=== PATIENT | female | born 1955 | race Caucasian/White ===

== ENCOUNTER 2022-05-24 08:29 | Observation (INO) ==
--- NOTE | 2022-05-10 12:00 | PAT Medication Instructions ---
Medication Instructions Date of Service May 10, 2022 Home Medications aspirin 81 mg tablet,delayed release 81 mg PO QPM atenolol 25 mg tablet 12.5 mg PO QPM 1 glucosamine-chondroitin 250 mg-200 mg tablet (Osteo Bi-Flex) 1 tab PO BID omega 3 350 mg-dha 235 mg-epa 90 mg-fish oil 597 mg capsule,delay rel ([place]-3) 1 tab PO WK Biotin 12,000 mg PO BID Calcium 1,500 mg PO BID Iron 28 mg PO QAM ascorbic acid (vitamin C) 1,000 mg tablet (Vitamin C) 1 g PO BID cholecalciferol (vitamin D3) 125 mcg (5,000 unit) tablet (Vitamin D3) 125 mcg PO QAM red yeast rice 600 mg tablet 600 mg PO BID vitamin K2 100 mcg capsule 100 mcg PO QAM zinc 50 mg tablet 50 mg PO QAM ASK your prescriber and surgeon aspirin 81 mg tablet,delayed release 81 mg PO QPM STOP taking 2 weeks before surgery glucosamine-chondroitin 250 mg-200 mg tablet (Osteo Bi-Flex) 1 tab PO BID omega 3 350 mg-dha 235 mg-epa 90 mg-fish oil 597 mg capsule,delay rel ([place]-3) 1 tab PO WK Biotin 12,000 mg PO BID red yeast rice 600 mg tablet 600 mg PO BID vitamin K2 100 mcg capsule 100 mcg PO QAM DO NOT take the morning of surgery Calcium 1,500 mg PO BID Iron 28 mg PO QAM ascorbic acid (vitamin C) 1,000 mg tablet (Vitamin C) 1 g PO BID cholecalciferol (vitamin D3) 125 mcg (5,000 unit) tablet (Vitamin D3) 125 mcg PO QAM zinc 50 mg tablet 50 mg PO QAM Take evening before surgery atenolol 25 mg tablet 12.5 mg PO QPM Calcium 1,500 mg PO BID ascorbic acid (vitamin C) 1,000 mg tablet (Vitamin C) 1 g PO BID OTHERWISE NOTHING TO EAT OR DRINK AFTER MIDNIGHT Other Notes If you have any questions please call us at [phone] or [phone] or [phone] or [phone]
--- NOTE | 2022-05-14 15:15 | History and Physical Report ---
CHIEF COMPLAINT: Mass protruding from the vagina on coughing, sneezing, or straining. HISTORY OF PRESENT ILLNESS: The patient is a 67-year-old 3, para 3, good general health. Myla valentine had a total abdominal hysterectomy and bilateral salpingo-oophorectomy with removal of ovarian tumo r in 2014. She had a lot of uterine prolapse at this time, and at this time, we did a suspension of the vaginal cuff. She did well then until about a year prior to admission when she began to have a m ass protruding from her vagina on coughing, sneezing, or straining. The symptoms have been getting p rogressively worse. She was seen in the office for evaluation. She was noted to have a second-degre e cystocele and third-degree rectocele. She is presently being scheduled for an anterior colporrhaph y, posterior colporrhaphy, and insertion of suprapubic cystocath. PAST MEDICAL HISTORY:. She has 3 children in good health. She has tachycardia and atrial fibrillati on and she is on medication for that ALLERGIES: She has no known drug allergies. PAST SURGICAL HISTORY: She had total abdominal hysterectomy with removal of ovarian tumor and bilate ral salpingo-oophorectomy in 2018. She had a heart catheterization in 2004. SOCIAL HISTORY: No smoking. No excessive alcohol intake. She is a [id number]. FAMILY HISTORY: Mom at age 88, stroke. Father at age 92 after a broken hip. Fiver brothe rs and sisters, 3 brothers and 2 sisters, 1 brother was an alcoholic and of alcoholism. One bro ther of complications from a carotid endarterectomy. REVIEW OF SYSTEMS: HEAD: No symptoms of frequent or severe headaches. EYES: No symptoms of blurred vision or double vision. EARS: No symptoms of frequent ear infection or difficulty hearing. NOSE: No symptoms of frequent nosebleeds or difficulty breathing through her nose. THROAT: No symptoms of frequent or severe sore throat or difficulty swallowing. RESPIRATORY: No history of asthma, chest pain, or shortness of breath. PHYSICAL EXAMINATION: GENERAL: Well-developed, well-nourished 67-year-old white female, alert, oriented x3, and cooperativ e, in no acute distress, appeared her stated age. EYES: Conjunctivae pink. Sclerae white, no evidence of jaundice. ENT: Ears had normal light reflex bilaterally. Nose had normal mucosa. Septum is midline. There w ere no polyps. THROAT: No erythema or evidence of infection. Teeth are in good state of repair. HEAD: Normocephalic. Normal distribution of hair. NECK: Supple. Trachea midline. Thyroid is not enlarged. There is no adenopathy appreciated. Both carotids are of good intensity. CHEST: Clear to auscultation and percussion. No wheezes, rales, or rhonchi appreciated. HEART: Had regular rhythm. S1 and S2 are normal. BREASTS: Normal. ABDOMEN: Soft and nontender. There is a well-healed abdominal scar. PELVIC: Revealed a second to third degree cystocele and third to fourth degree rectocele. No calf t enderness. IMPRESSION OF THIS CASE: History of ovarian tumor, status post previous total abdominal hysterectomy and bilateral salpingo-oophorectomy, atrial fibrillation, symptomatic cystocele, and symptomatic rec tocele. Job ID: [id number]
--- NOTE | 2022-05-14 15:20 | Anesthesiology Consultation ---
Date of Service May 14, 2022 Assessment & Plan (1) Encounter for pre-operative examination: Chart Review Chart Review: Acceptable Risk for Surgery and Patient seen in Pre Admission Testing - Discussed cardiac history with Dr. Elliott- patient can proceed as scheduled Pt has low normal blood pressure- pt wants anesthesia to be aware Per PAT appt on 05/14/22, patient denies any recent travel or large group activities. Pt is vaccinated for Covid. Will leave to surgeon's discretion if preop Covid testing needed. Educated on importance of using Covid precautions one week prior to surgery OLIVIER 04/07/18= done under [place] with grade 1 view with MAC #3. ETT #7.0. Cords clear, atraumatic x1 attempt. Teaching & Discussion Pre-Anesthesia Teaching/Discussion Notes: Instructed NPO after midnight before surgery,except medications with 15 cc of water. Medication instructions provided according to the PAT guidelines. History Surgery Operation Date: 05/24/22 11:15 Proposed Procedures p Anterior and Posterior Colporrhaphy, - Raul Hill MD s Insertion Suprapubic Cystocath - Raul Hill MD Height/Weight Height: 5 ft 2.25 in Weight: 61.9 kg Allergies Allergy/AdvReac Type Severity Reaction Status Date / Time No Known Allergies Allergy Verified 05/09/22 13:01 Medications Home Medications Medication Instructions Recorded Confirmed Last Taken aspirin 81 mg tablet,delayed 81 mg PO QPM 03/23/18 05/09/22 03/26/18 08:00 release atenolol 25 mg tablet 12.5 mg PO QPM 03/23/18 05/09/22 04/06/18 18:00 glucosamine-chondroitin 250 mg-200 1 tab PO BID 03/23/18 05/09/22 03/26/18 08:00 mg tablet (Osteo Bi-Flex) omega 3 350 mg-dha 235 mg-epa 90 1 tab PO WK 03/23/18 05/09/22 03/26/18 08:00 mg-fish oil 597 mg capsule,delay rel ([place]-3) Biotin 12,000 mg PO BID 05/09/22 05/09/22 Unknown Calcium 1,500 mg PO BID 05/09/22 05/09/22 Unknown Iron 28 mg PO QAM 05/09/22 05/09/22 Unknown ascorbic acid (vitamin C) 1,000 mg 1 g PO BID 05/09/22 05/09/22 Unknown tablet (Vitamin C) cholecalciferol (vitamin D3) 125 125 mcg PO QAM 05/09/22 05/09/22 Unknown mcg (5,000 unit) tablet (Vitamin D3) red yeast rice 600 mg tablet 600 mg PO BID 05/09/22 05/09/22 Unknown vitamin K2 100 mcg capsule 100 mcg PO QAM 05/09/22 05/09/22 Unknown zinc 50 mg tablet 50 mg PO QAM 05/09/22 05/09/22 Unknown Past Medical History Medical History (Updated 05/14/22 @ 15:57 by Deidra Corea PA-C) History of anesthesia reaction Pt states she had hypotension with cardiac cath in 2004 History of atrial fibrillation - Pt states happens intermittently and that episodes are easily aborted by bearing down so, per pt, cardio said no need for anticoagulation. On ASA 81mg and Atenolol - Only follows with cardio PRN. Has not seen cardio x years- follows with PCP. No significant issues recently History of tachycardia Osteoporosis Exercise / Class Metabolic Activity II 4-5 Yardwork/Stairs/Walk up hill (one flight of stairs - no chest pain or SOB ) Past Family History Family History Father Family history of diabetes mellitus Mother Family history of diabetes mellitus Other No family history of adverse response to anesthesia Past Surgical History Surgical History History of esophagogastroduodenoscopy (EGD) History of total abdominal hysterectomy and bilateral salpingo-oophorectomy @ [facility] Dr. Hill 03/2018 Hx of cardiac catheterization 2004 - done in [facility] - d/t a fib and tachycardia - negative study - no stenting Hx of colonoscopy Past Anesthesia History No Hx of Anesthesia Complications (with exception to one episode of hypotension with cardiac cath- no issues with OLIVIER in 2018) and No Family Hx of Anesthesia Complications History of PONV No Hx of PONV and No Hx of Motion Sickness Social History Smoking Status: Never smoker Do You Dip or Chew Tobacco: No Hx Alcohol Use: No Hx Substance Use: No Review of Systems Patient denies chest pain, shortness of breath, dyspnea on exertion, reflux, cough, wheezing, palpitations. No hx of seizures, stroke, [place], apnea/snoring. No hx of blood clots or blood transfusions Physical Exam Vital Signs VITALS BP 109/72 P 66 TEMP 98.2 SP02 97% RESP 16 Constitutional no acute distress ENMT Mouth: no TMJ clicking Thyromental Distance: < 3.5 Finger Breadths (2.5) Mallampati Class: I Getting dental extraction on 05/21/22 (molar) Cap to top incisor Neck neck extension not limited Respiratory normal respiratory effort; no respiratory distress Auscultation: lungs clear to auscultation bilaterally; no wheezes Cardiovascular Rate/Rhythm: regular rate and regular rhythm Heart Sounds: no murmur Vessels: no carotid bruit Musculoskeletal Spine: no pain with cervical ROM Extremities: extremities normal to inspection Psychiatric Orientation: alert Lab Results Anesthesia Preop Results Results Anesthesia Widget: WBC 6.54 K/ul (4.8-10.8) 05/14/22 Hgb 13.5 g/dl (12.0-16.0) 05/14/22 Hct 40.0 % (34.1-44.9) 05/14/22 Plt 236 K/uL (130-400) 05/14/22 Na 141 mmol/L (136-145) 05/14/22 K 4.8 mmol/L (3.5-5.1) 05/14/22 Cl 105 mmol/L (98-107) 05/14/22 CO2 31 mmol/L (21-32) 05/14/22 BUN 22 mg/dl (6-23) 05/14/22 Creat 0.74 mg/dl (0.6-1.2) 05/14/22 Glucose Level 88 mg/dl (70-99(Fasting)) 05/14/22 PT 10.9 Seconds (9.0-12.0) 05/14/22 PTT 23.7 Seconds (21.0-31.0) 05/14/22 INR 1.0 (0.9-1.1) 05/14/22 Blood Type A Positive 05/14/22 Antibody Screen NEGATIVE 05/14/22 Testing Electrocardiogram Date: 05/14/22 Findings: + NSR @ (61bpm ) Normal EKG per cardio COVID-19 Risk Screen Screening Information COVID-19 Screen Date: 05/14/22 Exposure 21 Days Family/Household +COVID Last 21 Days: No Exposure 10 Days Any COVID Exposure Last 10 Days: No Symptoms Last 10 Days Experienced COVID Sx Last 10 Days: No + COVID 0-90 Days COVID + in Last 0-90 Days: No Risk Plan COVID Risk Plan: No Risk Identified Patient Education COVID Preop Screening Education Complete: Yes
[~2022-05-24 08:29] MED LIST: LR 15ML/HR IV SCH; cefOXitin 2,000 MG in DEXTROSE 5% 50 ML IV SCH
[2022-05-24] MEDS ORDERED: LIDOCAINE 2% MPF LOCAL 5 ML VIAL INFIL ONE (10:03)
[2022-05-24] MEDS ORDERED: PROPOFOL IV EMULSION 10 MG/ML 20 ML VIAL IV ONE (10:03)
[2022-05-24] MEDS ORDERED: ONDANSETRON INJ 2 MG/ML 2 ML VIAL ONE (10:03)
[2022-05-24] MEDS ORDERED: DEXAMETHASONE SOD INJ 4 MG/ML VIAL ONE (10:03)
[2022-05-24] MEDS ORDERED: fentaNYL citrate 100 MCG/2 ML VIAL ONE (10:04)
[2022-05-24] MEDS ORDERED: MIDAZOLAM HCL 1 MG/ML 2ML VIAL ONE (10:04)
--- NOTE | 2022-05-24 10:18 | History & Physical Bridge Note ---
Date of Service May 24, 2022 History & Physical Bridge Note I have examined the patient, reviewed the History & Physical and in the interval since the performance of the History & Physical I have noted the following changes of clinical significance: no changes noted
[2022-05-24] MEDS ORDERED: LIDOCAINE 1%/EPINEPHRINE 1:100,000 50 ML VIAL ONE (10:45)
[2022-05-24] MEDS ORDERED: BUPIVACAINE 0.25% 30 ML VIAL ONE (10:56)
[2022-05-24] MEDS ORDERED: MoRPHine SULFATE PF 1 MG/ML 10 ML AMP/VIAL ONE (11:02)
[2022-05-24] MEDS ORDERED: PREMARIN VAG CRM 14 APPLN/30 GM TUBE ONE (11:06)
[2022-05-24] MEDS ORDERED: PHENYLEPHRINE HCL 10 MG/ML VIAL ONE (13:45)
[2022-05-24] MEDS ORDERED: ePHEDrine sulfate 50 MG/ML SYR ONE (13:45)
[2022-05-24] MEDS ORDERED: PHENYLEPHRINE 100MCG/ML 5ML SYR ONE (13:45)
[2022-05-24] MEDS ORDERED: NEOSTIGMINE METHYLSULFATE 1 MG/ML 10ML VIAL ONE (13:46)
[2022-05-24] MEDS ORDERED: GLYCOPYRROLATE 0.2 MG/ML VIAL ONE (13:46)
[2022-05-24] MEDS ORDERED: ePHEDrine sulfate 50 MG/ML AMP IV PRN ×2 (13:56→14:00)
[2022-05-24] MEDS ORDERED: NALBUPHINE HCL INJ 10 MG/ML AMP IV PRN ×2 (13:56→14:00)
[2022-05-24] MEDS ORDERED: diphenhydrAMINE 50 MG/ML VIAL IV PRN ×2 (13:56→14:00)
[2022-05-24] MEDS ORDERED: NALOXONE HCL 0.4 MG/1 ML VIAL/CARP IV PRN ×2 (13:56→14:00)
[2022-05-24] MEDS ORDERED: PROMETHAZINE HCL 25 MG in SODIUM CHLORIDE 0.9% 50 ML IV PRN ×2 (13:56→16:01)
[2022-05-24] MEDS ORDERED: MoRPHine SULFATE PF 1 MG/ML 10 ML AMP/VIAL INT SPINAL ONE ×2 (13:56→14:00)
[2022-05-24] MEDS ORDERED: ONDANSETRON INJ 2 MG/ML 2 ML VIAL IV PRN ×3 (13:56→17:02)
[2022-05-24] MEDS ORDERED: NALOXONE HCL 0.08 MG in SYRINGE 1.8 ML IV PRN ×2 (13:56→14:00)
[2022-05-24] MEDS ORDERED: NALOXONE HCL 1 MG in SODIUM CHLORIDE 0.9% 1000ML 1,000 ML IV PRN ×2 (13:56→14:00)
[2022-05-24] MEDS ORDERED: LACTATED RINGER'S 500 ML IV PRN ×2 (13:56→14:00)
[2022-05-24] MEDS ORDERED: MoRPHine SULFATE 2 MG/ML CARP IV PRN (14:00)
[2022-05-24] MEDS ORDERED: NO NARCOTICS OR SEDATIVES SCH ×2 (14:00)
[2022-05-24] MEDS ORDERED: KETOROLAC 30 MG/ML VIAL IV PRN (14:00)
[2022-05-24] MEDS ORDERED: diphenhydrAMINE Capsule 25 MG CAP PO PRN (14:00)
[2022-05-24] MEDS ORDERED: DC INTRASPINAL MORPHINE SCH ×2 (14:00)
[2022-05-24] MEDS ORDERED: MEPERIDINE HCL 25 MG/ML CARP/VIAL IV PRN (14:00)
[2022-05-24] MEDS ORDERED: SODIUM CHLORIDE 0.9% 1000ML 1,000 ML IV SCH ×2 (14:00)
--- NOTE | 2022-05-24 14:01 | Post Operative Brief Note ---
Immediate Post Op Note v1 Date of Surgery May 24, 2022 Pre & Post Diagnosis Operation Date: 05/24/22 10:00 Pre-Op Diagnosis: 4th Degree Cystocele, 3rd Degree Rectocele Post-Op Diagnosis: 4th Degree Cystocele, 3rd Degree Rectocele I identified the patient and participated in the time-out.: Yes Procedure Operation Date: 05/24/22 10:00 Actual Procedures p Anterior and Posterior Colporrhaphy,(Not Applicable) - Raul Hill MD s Insertion Suprapubic Cystocath - Raul Hill MD Surgeon Raul Hill MD Travel Consultant Dr Walker Estimated Blood Loss 50 Findings Consistent with Post-Op Diagnosis fourth degree cystocele third degree rectocele Drains Suprapubic Catheter Anesthesia Type General Complications none
--- NOTE | 2022-05-24 14:50 | Anesthesiology Progress Note ---
Date of Service May 24, 2022 Anesthesia Post Procedure Vital Signs Vital Signs: Temp Pulse Resp BP Pulse Ox O2 Del Method O2 Flow Rate 05/24/22 14:45 51 L 16 96/55 L 95 Room Air 05/24/22 14:35 51 L 16 96/54 L 97 Room Air 05/24/22 14:25 52 L 16 98/53 L 97 Oxymask 5 05/24/22 14:15 63 17 95/53 L 97 Oxymask 5 05/24/22 14:07 35.0 C L 72 18 116/48 L 97 Oxymask 5 05/24/22 09:04 36.8 C 63 18 132/76 99 Room Air Transfer of Care Handoff Completed per policy Notes Mental Status: alert / awake / arousable Patient Amnestic to Procedure: Yes Nausea / Vomiting: adequately controlled Pain: adequately controlled Airway Patency, RR, SpO2: stable & adequate BP & HR: stable & adequate Hydration State: stable & adequate Anesthetic Complications: no major complications apparent
[2022-05-24] MEDS ORDERED: SENNA 8.6 MG TAB PO PRN (16:01)
[2022-05-24] MEDS ORDERED: bisacodyL 10 MG SUPP PR PRN (16:01)
[2022-05-24] MEDS ORDERED: MAGNESIUM HYDROXIDE SUSP 30 ML UDC PO PRN (16:01)
[2022-05-24] MEDS ORDERED: KETOROLAC TROMETHAMINE 15 MG/ML VIAL ONE (17:04)
--- NOTE | 2022-05-24 21:44 | Operative Report (OR) ---
DATE OF PROCEDURE: 05/24/2022 PROCEDURE PERFORMED: Anterior colporrhaphy, posterior colporrhaphy, insertion of suprapubic cystocat h. INDICATIONS FOR SURGERY: Mass protruding from the vagina. PREOPERATIVE DIAGNOSIS: Fourth-degree cystocele, third-degree rectocele. POSTOPERATIVE DIAGNOSES: Fourth-degree cystocele, third-degree rectocele. Pathology pending. SURGEON: Raul Hill MD. TABULAR TYPIST: Taran Walker MD. ESTIMATED BLOOD LOSS: 50 mL. ANESTHESIA: Spinal narcotics with general anesthesia. OPERATIVE FINDING AND PROCEDURE: The patient was brought to the OR table, correctly identified by jd bergeron and conversation. Spinal narcotics had been administered. General anesthesia was administered . She was positioned on the OR table. Perineum and vagina were painted with Betadine paint, draped in usual sterile fashion. Catheter was used to empty the bladder. Pelvic exam revealed a fourth-deg ree cystocele with essentially the bladder entirely out with third-degree rectocele. I grasped the a nterior vaginal mucosa about 1 cm from the external urethral meatus and infiltrated the midline of th e cystocele up to the vaginal cuff and then out laterally. I then started the procedure by making an incision about a centimeter from the external urethral meat us and then dissected the anterior vaginal mucosa off of the bladder. This was a wide lateral dissec tion and was taken right up to the cuff. The bladder defect was huge. We reapproximated the defect with interrupted [id number]-bm-[id number] sutures of 3-0 Vicryl. Because of the size of the defect, this had to be done in 3 layers. After the 3 layers, the defect had been closed, was well approximated to the cuff to prevent recurrence at the cuff, and we then elevated the urethrovesical angle with a heavy d uty chromic suture, which was replaced at approximately the urethrovesical angle on the bladder. The y were placed each laterally in the paraurethral tissues and then it was tied and the paraurethral ti ssues were brought under the urethrovesical angle to support the bladder. We then continued to support by using a mattress suture of heavy duty chromic at the urethrovesical a ngle approximating the vaginal mucosa. Excess vaginal mucosa was excised and then approximated with interrupted [id number]-[id number] sutures of 3-0 Vicryl. This was done right up to the vaginal cuff. Foll owing this, we did a posterior repair by inserting two 4 x 4 packing sponges using a right angle to k eep the bladder away from the operative field and then infiltrating the perineum with local with epin ephrine. During the infiltration right up to the vaginal cuff and then dissecting a wedge-shaped por tion of the perineal skin away, dissecting the posterior vaginal mucosa right up to the vaginal cuff, palpating the sacrospinous notches on each side to indicate how far up we were, I used a figure-of-e ight suture of heavy Vicryl at the level of sacrospinous notches to approximate the levator ani muscl es. After that, levator ani muscles were approximated at the top. We continued the approximation with 3 additional [id number]-[id number] sutures right out and to beyond the hymenal ring. I then approximated the bulbocavernosus muscle with a deep suture of Vicryl, excised t he excess vaginal mucosa, approximated the vaginal mucosa with a continuous interlocking suture of he maxi Vicryl, approximated the perineal body with 2 sutures. The fxbzyr-[id number] suture at the top I l eft to come out at the perineum as a potential drain and after approximating the perineal body and th e bulbocavernosus muscle, I did a running subcuticular suture to approximate the perineal skin edges. I then removed the 4 x 4s, I used vaginal packing with Premarin cream. I used a lubricating gel, I did a rectal exam. There were no stitches through the rectum. I changed gloves. I inserted about 600 mL of normal saline into the bladder after catheterizing the bladder f or clear urine. Then, I inserted a suprapubic cystocath. I sewed it to the anterior abdominal wall with silk sutures and connected to gravity drainage. I then subsequently removed about 400 mL of nor mal saline from the bladder through the urethra. Following this, hemostasis was good. The patient t olerated the procedure well. Job ID: [id number]
[2022-05-25 05:51] LABS: Hematocrit (blood only) 29.4 % (37.0-47.0); Hemoglobin 10.1 g/dl (12.0-16.0)
[2022-05-25 06:18] LABS: Calcium 8.4 mg/dl (8.5-10.1); Potassium 4.1 mmol/L (3.5-5.1)
[2022-05-25 06:24] LABS: BUN Creatinine Ratio 13.8 (10-20); Creatinine Clr Calc Pharmacy 53.2 ml/min; Est GFR (African American) 78.8 ml/min
[2022-05-25] MEDS: LACTATED RINGER'S 1,000 ML IV SCH ×2 (07:34)
[2022-05-25] MEDS ORDERED: ONDANSETRON INJ 2 MG/ML 2 ML VIAL IV PRN (12:12)
[2022-05-25] MEDS: IBUPROFEN 600 MG TAB PO PRN ×3 (12:25→20:35)
--- NOTE | 2022-05-25 12:58 | Obstetrical Progress Note ---
Date of Service May 25, 2022 Assessment & Plan Admission and Anticipated Discharge Date Admission Date: May 24, 2022 Subjective abdomen soft and non tender urine clear output good no calf tenderness vaginal bleeding scant hgb 10.1 Results & Data ([facility]) Vital Signs (Past 12 Hours) Vital Signs Temp Pulse Resp BP Pulse Ox O2 Del Method 05/25/22 09:00 16 95 05/25/22 07:20 16 93 05/25/22 07:20 37 C 68 16 88/69 L 93 Room Air 05/25/22 05:30 16 94 05/25/22 04:30 18 93 05/25/22 06:10 18 93 05/25/22 01:30 16 94 05/25/22 02:30 16 93 05/25/22 03:45 18 95 05/25/22 03:45 36.9 C 63 18 92/46 L 95 Room Air
[2022-05-25] MEDS: ATENOLOL 25 MG TABLET PO SCH (13:06)
[2022-05-25] MEDS: ASPIRIN 81 MG ECTAB PO SCH (13:06)
[2022-05-25] MEDS ORDERED: oxyCODONE/ACETAMINOPHEN 5mg/325mg TAB PO PRN (16:02)
[2022-05-25] MEDS ORDERED: MEPERIDINE HCL 50 MG/ML CARP IV PRN (16:02)
[2022-05-25] MEDS ORDERED: IBUPROFEN 600 MG TAB PO PRN (16:02)
[2022-05-25] MEDS: KETOROLAC TROMETHAMINE 15 MG/ML VIAL IV PRN (22:39)
[2022-05-26] MEDS: KETOROLAC TROMETHAMINE 15 MG/ML VIAL IV PRN (04:25)
[2022-05-26] MEDS: oxyCODONE/ACETAMINOPHEN 5mg/325mg TAB PO PRN ×4 (05:55→23:02)
[2022-05-26 06:45] LABS: Potassium 4.3 mmol/L (3.5-5.1)
[2022-05-26 07:04] LABS: BUN Creatinine Ratio 17.1 (10-20); Creatinine Clr Calc Pharmacy 30.4 ml/min; Est GFR (African American) 40.1 ml/min; Est GFR (Non-African American) 34.6 ml/min
[2022-05-26] MEDS: ASPIRIN 81 MG ECTAB PO SCH (08:52)
--- NOTE | 2022-05-26 09:07 | Obstetrical Progress Note ---
Date of Service May 26, 2022 Assessment & Plan Admission and Anticipated Discharge Date Admission Date: May 24, 2022 Subjective abdomen soft and non tender urine clear output good no calf tenderness vaginal packing removed bleeding is scant hgb 10.1 Results & Data ([facility]) Vital Signs (Past 12 Hours) Vital Signs Temp Pulse Resp BP Pulse Ox O2 Del Method 05/26/22 07:00 37.4 C 20 05/26/22 06:01 94/49 L 05/26/22 04:35 37.0 C 68 18 97/54 L 91 Room Air 05/25/22 22:44 36.7 C 56 L 18 99/52 L 93 Room Air
[2022-05-26] MEDS: ATENOLOL 25 MG TABLET PO SCH (09:25)
[2022-05-26] MEDS: IBUPROFEN 600 MG TAB PO PRN ×3 (11:30→23:05)
--- NOTE | 2022-05-27 09:25 | Obstetrical Progress Note ---
Date of Service May 27, 2022 Assessment & Plan Admission and Anticipated Discharge Date Admission Date: May 24, 2022 Subjective abdomen soft and non tender bowel sounds are normal passing flatus vaginal bleeding scant hgb 10.0 urine clear will start clamping suprapubic catheter Results & Data ([facility]) Vital Signs (Past 12 Hours) Vital Signs Temp Pulse Resp BP Pulse Ox O2 Del Method 05/26/22 22:53 37.4 C 62 18 118/62 97 Room Air
[2022-05-27] MEDS: IBUPROFEN 600 MG TAB PO PRN ×3 (09:44→22:53)
[2022-05-27] MEDS: ATENOLOL 25 MG TABLET PO SCH (09:44)
[2022-05-27] MEDS: ASPIRIN 81 MG ECTAB PO SCH (09:45)
[2022-05-27] MEDS: oxyCODONE/ACETAMINOPHEN 5mg/325mg TAB PO PRN ×3 (09:45→22:54)
[2022-05-27] MEDS: LACTATED RINGER'S 1,000 ML IV SCH ×3 (19:34→19:40)
[2022-05-28] MEDS: LACTATED RINGER'S 1,000 ML IV SCH ×2 (02:43→13:04)
[2022-05-28] MEDS: ATENOLOL 25 MG TABLET PO SCH (09:28)
[2022-05-28] MEDS: ASPIRIN 81 MG ECTAB PO SCH (09:28)
--- NOTE | 2022-05-28 09:31 | Obstetrical Progress Note ---
Date of Service May 28, 2022 Assessment & Plan Admission and Anticipated Discharge Date Admission Date: May 24, 2022 Subjective abdomen soft and non tender passing flatus voiding in small amounts with high residuals urine is clear no calf tenderness ambulating well vaginal bleeding is scant Results & Data ([facility]) Vital Signs (Past 12 Hours) Vital Signs Temp Pulse Resp BP Pulse Ox O2 Del Method 05/28/22 07:50 36.8 C 74 18 120/60 98 Room Air 05/27/22 22:59 37.2 C 71 18 110/58 L 96 Room Air
--- NOTE | 2022-05-28 09:48 | Discharge Summary (DS) ---
HOSPITAL COURSE: The patient was admitted with a symptomatic fourth-degree cystocele, third-degree r ectocele, and prolapse of the vagina through the vaginal opening. On the day of admission, she was t aken to the OR. She was given prophylactic antibiotics in the form of Mefoxin 2 g. She underwent an anterior colporrhaphy, posterior colporrhaphy, and insertion of suprapubic cystocath. We used vagin al packing with Premarin cream. Postoperatively, she did well. Her postoperative hemoglobin was 10. 1. She remained afebrile throughout her entire postoperative course. The packing was left in for 48 hours and then removed the following day. We started clamping the Ellis and she started to void. A t the time of discharge, she was voiding approximately 75 to 80 mL at a time with residuals of 200. We are going to discharge her with the suprapubic catheter left in place. She is going to measure he r voiding output at home and monitor her residual. She was given instructions on how to monitor the suprapubic cystocath. When she starts voiding in amounts over 200 mL with residuals under 100, she i s to return to the office for removal of the catheter. She was also told to call if she had heavy va ginal bleeding or temperature over 100. Job ID: [id number]
[2022-05-28] MEDS: IBUPROFEN 600 MG TAB PO PRN ×2 (10:39→15:03)
[2022-05-28] MEDS: oxyCODONE/ACETAMINOPHEN 5mg/325mg TAB PO PRN (15:03)
== END 2022-05-28 15:30 | disposition home or self-care (01) ==
LOC: ASU 08:29 → INTOOBSV 14:18 → 4E1 14:18
PROC: M.APREP (2022-05-24 10:00)